=== PATIENT | male | born 1960 | race Caucasian/White ===

== ENCOUNTER 2018-01-14 23:52 | Emergency (ER) | payer BC, OTHER ==
[2018-01-15] MEDS: ASPIRIN 81 MG CHEW TABLET PO (00:22)
[2018-01-15] MEDS: METOPROLOL 5 MG/5 ML VIAL IV ×9 (00:25→01:35)
[2018-01-15 00:35] LABS: HEMATOCRIT 40.2 % (42.0-52.0); HEMOGLOBIN 13.4 g/dl (14.0-18.0); MEAN CORPUSCULAR HEMOGLOBIN 30.5 pg (27.0-33.0); MEAN CORPUSCULAR HGB CONC 33.3 g/dl (32.0-36.5); MEAN CORPUSCULAR VOLUME 91.4 fl (80.0-96.0); PLATELET COUNT, AUTOMATED 305 10^3/uL (150-450); RED CELL DISTRIBUTION WIDTH 13.1 % (11.5-14.5)
[2018-01-15 00:39] LABS: ADD MANUAL DIFFER YES; DIFF SLIDE NUMBER 96; POSITIVE DIFF POS FLAG; WHITE BLOOD COUNT 12.9 10^3/uL (4.0-10.0)
[2018-01-15] MEDS: METOPROLOL TART 50 MG TAB PO (00:40)
[2018-01-15 00:49] LABS: ANION GAP 4 MEQ/L (8-16); BLOOD UREA NITROGEN 16 MG/DL (7-18); CALCIUM LEVEL 9.2 MG/DL (8.5-10.1); CARBON DIOXIDE LEVEL 31 MEQ/L (21-32); CHLORIDE LEVEL 104 MEQ/L (98-107); CPK CREATINE PHOSPHOKINASE 265 U/L (39-308); CREATININE FOR GFR 1.02 MG/DL (0.70-1.30); FREE T4 1.02 NG/DL (0.76-1.46); GLOMERULAR FILTRATION RATE > 60.0 (>56); GLUCOSE, FASTING 105 MG/DL (70-100); POTASSIUM SERUM 3.5 MEQ/L (3.5-5.1); SODIUM LEVEL 139 MEQ/L (136-145); TROPONIN I < 0.02 NG/ML (< 0.10)
[2018-01-15 00:54] LABS: CK-MB VALUE MASS 2.2 NG/ML (<3.6); MB/CK RELATIVE INDEX 0.83 (< OR =4)
[2018-01-15 01:03] LABS: ATYPICAL LYMPH 7 % (0-5); BASOPHILS 2 % (0-4); EOSINOPHILS 6 % (0-5); LYMPHOCYTES 32 % (16-52); MONOCYTES 9 % (0-8); NEUTROPHILS 44 % (35-75)
[2018-01-15 01:05] LABS: PLATELET ESTIMATE NORMAL (NORMAL)
[2018-01-15] MEDS ORDERED: AMIODARONE HCL 150 MG/100 ML PREMIXED BAG (NEXTERONE) As Ordered (01:37)
[2018-01-15] MEDS ORDERED: DIGOXIN INJ 0.5 MG/2 ML AMP (J1160) As Ordered (01:37)
[2018-01-15] MEDS: DIGOXIN INJ 0.5 MG/2 ML AMP (J1160) IV (02:28)
[2018-01-15] MEDS: AMIODARONE HCL 150 MG in APPROPRIATE DILUENT 1 EA IV (02:29)
[2018-01-15 06:50] LABS: CK-MB VALUE MASS 1.6 NG/ML (<3.6); CPK CREATINE PHOSPHOKINASE 214 U/L (39-308); MB/CK RELATIVE INDEX 0.74 (< OR =4); TROPONIN I < 0.02 NG/ML (< 0.10)
== END 2018-01-15 07:18 | disposition home or self-care (01) ==
LOC: M ED 23:52
DX: I48.91 Unspecified atrial fibrillation (principal); R06.02 Shortness of breath; I10 Essential (primary) hypertension; I71.2 Thoracic aortic aneurysm, without rupture; Z88.0 Allergy status to penicillin
CPT/HCPCS: J1160

== ENCOUNTER → 2018-05-08 | Outpatient (CLI) | payer BC, OTHER ==
[2018-05-08 16:40] LABS: TROPONIN I < 0.02 NG/ML (< 0.10)
== END ==
LOC: M LAB 15:54
DX: R07.89 Other chest pain (principal)
CPT/HCPCS: 84484

== ENCOUNTER → 2021-04-27 | Outpatient (REF) | payer BC, OTHER ==
[~2021-04-27] MED LIST: ACET1TAB15 PO; ASPI81TA52; CEPH2CAP PO; CYTO25TA PO; METO1TAB32; MICA40TA PO; OMEP20CA3 PO; SYNT175T2; VITA-122
== END ==
LOC: M SMT 19:23
PROVIDERS: ATTEND Urology
DX: R31.0 Gross hematuria (principal); R97.20 Elevated prostate specific antigen [PSA]

== ENCOUNTER → 2021-04-27 | Outpatient (CLI) | payer BC, OTHER ==
--- NOTE | 2021-04-27 12:40 | REPPI ---
INDICATION: ELEVATED PSA. COMPARISON: None. TECHNIQUE: Transrectal prostate ultrasound performed, with ultrasound guidance provided for Dr. Beck who performed ultrasound-guided biopsy. FINDINGS: Prostate measures 5.4 x 3.4 x 6.0 cm, total volume 57.0 mL. Echotexture is heterogeneous with scattered tiny cysts and calcifications. A nodule is seen in the left anterolateral base measuring 5 mm in diameter. The seminal vesicles are symmetrical. IMPRESSION: Prostate ultrasound as above, ultrasound guidance was provided for Dr. Beck who performed ultrasound-guided biopsy of the prostate. <Electronically signed by Richy Garber > 04/27/21 [id number]
== END ==
LOC: M PLAIMG 09:54
PROVIDERS: ATTEND Urology
DX: R97.20 Elevated prostate specific antigen [PSA] (principal)

== ENCOUNTER → 2021-05-04 | Outpatient (REF) | payer BC, OTHER ==
[~2021-05-04] MED LIST changes: +TAMS1CAP17 PO; +TELM1TAB33 PO
[2021-05-04 18:50] LABS: APPEARANCE, URINE CLEAR (CLEAR); BACTERIA, URINE AUTO NEGATIVE (NEGATIVE); BILIRUBIN, URINE AUTO NEGATIVE (NEGATIVE); BLOOD, URINE BLOOD 3+ (NEGATIVE); COLOR, URINE YELLOW (YELLOW); GLUCOSE, URINE (UA) AUTO NEGATIVE (NEGATIVE); KETONE, URINE AUTO NEGATIVE (NEGATIVE); LEUKOCYTE ESTERASE, URINE AUTO 1+ (NEGATIVE); MUCUS, URINE SMALL (NEGATIVE); NITRITE, URINE AUTO NEGATIVE (NEGATIVE); PROTEIN, URINE AUTO 1+ mg/dL (NEGATIVE); RBC, URINE AUTO 43 /HPF (0-3); SPECIFIC GRAVITY URINE AUTO 1.024 (1.002-1.035); SQUAMOUS EPITHELIAL CELL UR AU 1 /HPF (0-6); UROBILINOGEN, URINE AUTO 0.2 mg/dL (0.0-2.0); WBC, URINE AUTO 5 /HPF (0-3)
== END ==
LOC: M SMT 17:13
PROVIDERS: ATTEND Urology
DX: N39.0 Urinary tract infection, site not specified (principal)

== ENCOUNTER → 2021-11-27 | Outpatient (CLI) | payer BC, OTHER | LOC: M LABSMTC 12:28 | PROVIDERS: ATTEND Anesthesiology | DX: Z01.812 Encounter for preprocedural laboratory examination (principal); Z20.822 Contact with and (suspected) exposure to COVID-19 ==

== ENCOUNTER 2021-12-02 13:28 | Day surgery (SDC) | payer BC, OTHER ==
[~2021-12-02] VITALS: Ht 200.7 cm; Wt 127.5 kg
[~2021-12-02 13:28] MED LIST changes: +NS 1,000 ML IV ONE
[2021-12-02 16:10] VITALS: BP 137/86
== END 2021-12-02 16:17 | disposition home or self-care (01) ==
LOC: M OPP 13:28
PROVIDERS: ATTEND Surgery
DX: K63.5 Polyp of colon (principal); R19.5 Other fecal abnormalities; E03.9 Hypothyroidism, unspecified; I71.2 Thoracic aortic aneurysm, without rupture; Z90.89 Acquired absence of other organs; Z90.5 Acquired absence of kidney; Z90.81 Acquired absence of spleen; Z92.3 Personal history of irradiation; Z92.21 Personal history of antineoplastic chemotherapy; Z79.899 Other long term (current) drug therapy; Z80.0 Family history of malignant neoplasm of digestive organs

== ENCOUNTER → 2022-01-20 | Outpatient (CLI) | payer BC, OTHER ==
[~2022-01-20] MED LIST changes: +ATOR1TAB21 PO; -METO1TAB32; +METO1TAB32 PO; -NS 1,000 ML IV ONE; -SYNT175T2; +SYNT175T2 PO
== END ==
LOC: M LABSMTC 11:07
PROVIDERS: ATTEND Anesthesiology
DX: Z01.812 Encounter for preprocedural laboratory examination (principal); Z20.822 Contact with and (suspected) exposure to COVID-19

== ENCOUNTER → 2022-03-01 | Outpatient (CLI) | payer BC, OTHER ==
[~2022-03-01] MED LIST changes: +CIPR-249 PO; +COLA100C5 PO
== END ==
LOC: M WUC 08:34
PROVIDERS: ATTEND Physician Assistant
DX: C61 Malignant neoplasm of prostate (principal)

== ENCOUNTER → 2022-03-08 | Outpatient (REF) | payer BC, OTHER | LOC: M LAB REF 13:00 | PROVIDERS: ATTEND Ophthalmology | DX: D23.111 Other benign neoplasm of skin of right upper eyelid, including canthus (principal) ==

== ENCOUNTER → 2023-01-19 | Outpatient (CLI) | payer OTHER ==
[~2023-01-19] MED LIST changes: +METHACHOLINE KIT INH ONE
== END ==
LOC: M CARPUL 09:25
PROVIDERS: ATTEND Internal Medicine Pulmonary Disease
DX: R06.02 Shortness of breath (principal)
CPT/HCPCS: 88738; 94060; 94070; 94726; 94729; 95070; J7674

== ENCOUNTER → 2025-05-22 | Outpatient (CLI) | payer MEDICARE, OTHER ==
[~2025-05-22] MED LIST changes: -METHACHOLINE KIT INH ONE
== END ==
LOC: M RAD 07:05
PROVIDERS: ATTEND Physician Assistant Medical
DX: E04.1 Nontoxic single thyroid nodule (principal); I71.21 Aneurysm of the ascending aorta, without rupture; R59.0 Localized enlarged lymph nodes; K80.20 Calculus of gallbladder without cholecystitis without obstruction; N20.1 Calculus of ureter; Z90.5 Acquired absence of kidney

== ENCOUNTER → 2025-08-12 | Outpatient (REF) | payer MEDICARE, BC, OTHER | LOC: M LABSMT 09:27 | PROVIDERS: ATTEND Urology | DX: Z53.9 Procedure and treatment not carried out, unspecified reason (principal) ==

== ENCOUNTER 2025-09-02 09:12 | Day surgery (SDC) | payer MEDICARE, OTHER ==
[~2025-09-02] VITALS: Ht 195.6 cm; Wt 123.8 kg
[~2025-09-02 09:12] MED LIST changes: +ADVA115A INH; +CYCL-707 PO; +VENTAER INH
[2025-09-02] MEDS ORDERED: GLYCOPYRROLATE INJ 0.2 MG/ML 2 ML VIAL As Ordered ONE (11:36)
[2025-09-02 12:27] VITALS: BP 133/76; O2SAT 96
== END 2025-09-02 12:27 | disposition home or self-care (01) ==
LOC: M OPP 09:12
PROVIDERS: ATTEND Surgery
DX: D12.6 Benign neoplasm of colon, unspecified (principal); K57.30 Diverticulosis of large intestine without perforation or abscess without bleeding; Z86.0100 Personal history of colon polyps, unspecified; G47.30 Sleep apnea, unspecified; I48.91 Unspecified atrial fibrillation; Z88.0 Allergy status to penicillin; Z79.899 Other long term (current) drug therapy
CPT/HCPCS: 45385; 88305; J1596